=== PATIENT | male | born 1945 | race Caucasian/White ===

== ENCOUNTER → 2020-12-12 | Outpatient (CLI) | payer OTHER ==
--- NOTE | 2020-12-12 10:42 | 2DMMODE ---
[facility] [address] [place] [address] 2 D/M-MODE ECHOCARDIOGRAM Name: BRYANT ARTHUR Room #: REG SHELBIE M.R.#: [id number] Admission: 12/12/20 Attend Phys: Supa Navarrete MD Discharge: Date of : 47 Report #: [id number] THIS REPORT FOR: cc: FAM - Family physician unknown FAM - Family physician unknown Juwan Shepherd MD ~ APPROVED REPORT Study performed: 12/12/2020 08:59:00 EXAM: Comprehensive 2D, Doppler, and color-flow Echocardiogram Patient Location: Out-Patient Status: routine BSA: 2.12 HR: 91 bpm BP: 132/70 mmHg Rhythm: Pacemaker Other Information Study Quality: Adequate Technically limited study due to heavy lung artifact. Indications Ischemic heart disease. Hx: Afib/pacemaker, DM, HTN, HLP. 2D Dimensions RVDd: 29.00 mm IVSd: 13.00 (7-11mm) LVOT Diam: 23.00 (18-24mm) LVDd: 43.07 mm PWd: 12.00 (7-11mm) LVDs: 31.44 (25-40mm) Left Atrium: 39.15 (27-40mm) Aortic Root: 37.43 mm Volumes Left Atrial Volume (Systole) Single Plane 4CH: 63.21 mL Single Plane 2CH: 87.89 mL LA ESV Index: 37.00 mL/m2 Aortic Valve AoV Peak Irving.: 3.23 m/s [facility] [address] [place] [address] 2 D/M-MODE ECHOCARDIOGRAM Name: BRYANT ARTHUR Room #: REG [facility].#: [id number] Admission: 12/12/20 Attend Phys: Supa Navarrete MD Discharge: Date of : 47 Report #: [id number] AO Peak Gr.: 41.85 mmHg LVOT Max P.14 mmHg AO Mean Gr.: 23.87 mmHg AO V2 Mean: 2.30 m/s LVOT Max V: 1.24 m/s AO V2 VTI: 71.12 cm PATTI Vmax: 1.57 cm2 Mitral Valve E/A Ratio: 0.8 MV Decel. Time: 241.30 ms MV E Max Irving.: 1.06 m/s MV A Irving.: 1.30 m/s MV PHT: 69.98 ms IVRT: 69.20 ms Pulmonary Valve PV Peak Irving.: 1.14 m/s PV Peak Gr.: 5.19 mmHg Pulmonary Vein P Vein S: 0.48 m/s P Vein D: 0.24 m/s P Vein S/D Ratio: 2.00 Tricuspid Valve TR Peak Irving.: 2.82 m/s RAP Estimate: 5.00 mmHg TR Peak Gr.: 32.00 mmHg PA Pressure: 37.00 mmHg Left Ventricle The left ventricle is normal size. There is normal LV segmental wall motion. Mild concentric left ventricular hypertrophy. Left ventricular systolic function is normal. LVEF is 60%. Mild diastolic dysfunction is present (impaired relaxation pattern). Right Ventricle The right ventricle is normal size. The right ventricular systolic function is normal. Pacemaker lead is present in the right ventricle. Atria Left atrium is mildly dilated. The right atrium size is normal. Aortic Valve Aortic valve is moderately calcified. Mild aortic regurgitation. There is mild to moderate valvular aortic stenosis. Calculated aortic valve area is 1.6 cm2 with maximum pressure gradient of 42 mmHg and mean pressure gradient of 24 mmHg. [facility] [place] [address] 2 D/M-MODE ECHOCARDIOGRAM Name: BRYANT ARTHUR Room #: REG [facility].#: [id number] Admission: 12/12/20 Attend Phys: Supa Navarrete MD Discharge: Date of : 47 Report #: [id number] Mitral Valve Moderate mitral annular calcification. Trace mitral regurgitation. No evidence of mitral valve stenosis. Tricuspid Valve The tricuspid valve is normal in structure. Mild to moderate tricuspid regurgitation. Estimated PAP is 35 mmHg. Pulmonic Valve The pulmonary valve is normal in structure. Mild pulmonic regurgitation. Great Vessels The aortic root is normal in size. Ascending aorta is not well visualized. IVC is normal in size and collapses >50% with inspiration. Pericardium There is no pericardial effusion. <Conclusion> The left ventricle is normal size. Mild concentric left ventricular hypertrophy. Left ventricular systolic function is normal. Mild diastolic dysfunction is present (impaired relaxation pattern). The right ventricle is normal size. Pacemaker lead is present in the right ventricle. Left atrium is mildly dilated. There is mild to moderate valvular aortic stenosis. Mild aortic regurgitation. Moderate mitral annular calcification. Mild to moderate tricuspid regurgitation. Estimated PAP is 35 mmHg. <ELECTRONICALLY SIGNED> By: Juwan Shepherd MD 12/12/20 1042 [id number] Juwan Shepherd MD /INF
--- NOTE | 2020-12-13 07:25 | EKG ---
[place] [address] [employer] [place] [address] ELECTROCARDIOGRAM REPORT Name: BRYANT ARTHUR Room #: REG CLI ..#: [id number] Admission: 12/12/20 Attend Phys: Supa Navarrete MD Discharge: Date of : 47 Report #: [id number] [facility] Test Date: 2020-12-12 Test Time: 10:19:10 Pat Name: BRYANT ARTHUR Department: Room: Gender: M [employer] Clerk: MEDINA : [id number] Requested By: Supa Navarrete Order Number: [id number] MD: Tomer Antunez Measurements Intervals [place] Rate: 69 P: 44 IL: 217 QRS: -79 QRSD: 158 T: 55 QT: 462 QTc: 495 Interpretive Statements Sinus rhythm Borderline prolonged IL interval Right bundle branch block Left ventricular hypertrophy Inferior infarct, old Lateral leads are also involved No previous ECG available for comparison Electronically Signed On 12-13-2020 7:24:48 CDT by Tomer Antunez [email or web address] <ELECTRONICALLY SIGNED> By: Tomer Antunez MD, [facility] 12/13/20 0724 1019 1019 Tomer Antunez MD, FACC /EPI
== END ==
LOC: CV 08:46
PROVIDERS: ATTEND Orthopaedic Surgery
DX: I08.8 Other rheumatic multiple valve diseases (principal); I25.9 Chronic ischemic heart disease, unspecified